=== PATIENT | male | born 1990 | race Caucasian/White ===

== ENCOUNTER 2017-05-04 04:30 | Inpatient (IN) | payer OTHER ==
[~2017-05-04] VITALS: Ht 182.9 cm; Wt 103.1 kg
[2017-05-04 04:50] VITALS: BP 132/71; PULSE 126; RESP 16; TEMP 98.7; O2SAT 96
[2017-05-04] MEDS ORDERED: SODIUM CHLOR 0.9% 1000 ML INJ 1,000 ML IV ONE (05:00)
[2017-05-04] MEDS ORDERED: LORazepam 2 MG/ML VIAL IV ONE (05:00)
[2017-05-04] MEDS ORDERED: SODIUM CHLORIDE 0.9% FLUSH 10 ML FLUSH IV FLUSH PRN (05:00)
[2017-05-04] MEDS ORDERED: CLON1 PO (05:03)
[2017-05-04] MEDS ORDERED: XANA1TAB2 PO (05:03)
[2017-05-04] MEDS ORDERED: ADDE10 PO (05:03)
--- NOTE | 2017-05-04 05:05 | PD ---
HPI Chief Complaint: Psychiatric Symptoms Time Seen by Provider: 04:58 Travel History International Travel<30 days: No Contact w/Intl Traveler<30days: No Traveled to known affect area: No History of Present Illness HPI Patient comes under Patel act by police after threatening to harm himself while holding a knife. Patient had to be tasered by police in order to get him to dropped a knife. chief customer officer reports one probe penetrated his right thigh the other one did not make the skin contact and landed on his right upper anterior thoracic cavity. Patient states getting tasered caused him to step back and dropped a knife but did not cause him to fall to the ground. Patient states he's been tasered before. Patient states he is not sure what happened that everything just went bad tonight. Patient patient's only medical concerns chronic abdominal pain. Patient states is unchanged. Denies anything making it better or worse. Denies any radiation of the pain. PFSH Past Medical History ADHD: Yes Psychiatric: Yes Social History Alcohol Use: No Tobacco Use: Yes Substance Use: No Allergies-Medications (Allergen,Severity, Reaction): Coded Allergies: Haloperidol (Verified Allergy, Severe, Anaphylaxis, 05/04/17) Reported Meds & Prescriptions Reported Meds & Active Scripts Active Reported Adderall (Amphetamine-Dextroamphetamine) 10 Mg Tab 10 Mg PO DIRECTED Take 10 mg in the morning & 5 mg (1/2 tab) at noon. Klonopin (Clonazepam) 1 Mg Tab 1 Mg PO HS Xanax (Alprazolam) 1 Mg Tab 1 Mg PO HS PRN Review of Systems Except as stated in HPI: all other systems reviewed are Neg Physical Exam Narrative GENERAL: Well-developed, overly nourished, in no acute distress, and non-ill appearing. SKIN: Focused skin assessment warm and dry. Patient is a small burn christian noted on right anterior thigh from where he was taser. There is no foreign body noted. No other taser quintana noted in the right upper thoracic cavity police judge reports the other probe landed. HEAD: Atraumatic. Normocephalic. EYES: Pupils equal and round. EOMI. No scleral icterus. No injection or drainage. ENT: No nasal bleeding or discharge. Mucous membranes pink and moist. NECK: Trachea midline. No JVD. Supple. No nuclear rigidity. CARDIOVASCULAR: Regular rate and rhythm. No murmur appreciated. RESPIRATORY: No accessory muscle use. No respiratory distress. Clear to auscultation. Breath sounds equal bilaterally. GASTROINTESTINAL: Abdomen soft, non-tender, nondistended. Hepatic and splenic margins not palpable. No pulsatile mass. MUSCULOSKELETAL: No obvious deformities. No clubbing. No cyanosis. No edema. Full range of motion. NEUROLOGICAL: Awake and alert. No obvious cranial nerve deficits. Motor grossly within normal limits. Normal speech. PSYCHIATRIC: Appropriate mood and affect; insight and judgment normal. Data Data Last Documented VS Vital Signs Date Time Temp Pulse Resp B/P Pulse Ox O2 Delivery O2 Flow Rate FiO2 05/04/17 04:53 125 16 05/04/17 04:50 98.7 132/71 96 Orders Complete Blood Count With Diff (05/04/17 04:56) Comprehensive Metabolic Panel (05/04/17 04:56) Electrocardiogram (05/04/17 04:56) Psych Screen (05/04/17 04:56) Lorazepam Inj (Ativan Inj) (05/04/17 05:00) Drug Screen, Random Urine (05/04/17 04:56) Alcohol (Ethanol) (05/04/17 04:56) Salicylates (Aspirin) (05/04/17 04:56) Tylenol (Acetaminophen) (05/04/17 04:56) Sodium Chlor 0.9% 1000 Ml Inj (Ns 1000 M (05/04/17 05:00) Iv Access Insert/Monitor (05/04/17 04:58) Ecg Monitoring (05/04/17 04:58) Oximetry (05/04/17 04:58) Sodium Chloride 0.9% Flush (Ns Flush) (05/04/17 05:00) Potassium Chloride (Kcl) (05/04/17 07:00) Labs Laboratory Tests Test 05/04/17 05:00 White Blood Count 15.1 TH/MM3 Red Blood Count 5.35 MIL/MM3 Hemoglobin 16.0 GM/DL Hematocrit 47.6 % Mean Corpuscular Volume 89.1 FL Mean Corpuscular Hemoglobin 30.0 PG Mean Corpuscular Hemoglobin 33.6 % Concent Red Cell Distribution Width 14.5 % Platelet Count 305 TH/MM3 Mean Platelet Volume 9.8 FL Neutrophils (%) (Auto) 79.7 % Lymphocytes (%) (Auto) 11.0 % Monocytes (%) (Auto) 8.8 % Eosinophils (%) (Auto) 0.1 % Basophils (%) (Auto) 0.4 % Neutrophils # (Auto) 12.0 TH/MM3 Lymphocytes # (Auto) 1.7 TH/MM3 Monocytes # (Auto) 1.3 TH/MM3 Eosinophils # (Auto) 0.0 TH/MM3 Basophils # (Auto) 0.1 TH/MM3 CBC Comment DIFF FINAL Differential Comment Sodium Level 140 MEQ/L Potassium Level 3.1 MEQ/L Chloride Level 105 MEQ/L Carbon Dioxide Level 21.5 MEQ/L Anion Gap 14 MEQ/L Blood Urea Nitrogen 12 MG/DL Creatinine 0.99 MG/DL Estimat Glomerular Filtration 91 ML/MIN Rate Random Glucose 115 MG/DL Calcium Level 9.9 MG/DL Total Bilirubin 0.4 MG/DL Aspartate Amino Transf 49 U/L (AST/SGOT) Alanine Aminotransferase 56 U/L (ALT/SGPT) Alkaline Phosphatase 69 U/L Total Protein 7.9 GM/DL Albumin 4.4 GM/DL Salicylates Level 3.0 MG/DL Acetaminophen Level LESS THAN 2.0 MCG/ML Ethyl Alcohol Level LESS THAN 3 MG/DL MDM Medical Decision Making Medical Screen Exam Complete: Yes Emergency Medical Condition: Yes Interpretation(s) EKG reviewed by Dr. Guardado shows sinus tachycardia with a ventricular rate of 109. No STEMI. Differential Diagnosis Homicidal, suicidal, acute psychosis, nonspecific mood disorder, electrolyte abnormality, alcohol intoxication, other Narrative Course Patient was seen and examined. Labs were obtained and reviewed with the exception urine drug screen. Patient's potassium was replaced orally. Patient medically cleared for further treatment and evaluation by psych. Final disposition per psych. Diagnosis Primary Impression: Hypokalemia Additional Impression: Medical clearance for psychiatric admission Condition: Stable Bartolo Arteaga May 04, 2017 05:04
[2017-05-04 05:57] LABS: BASOPHIL # 0.1 TH/MM3 (0-0.2); BASOPHIL % 0.4 % (0.0-2.0); EOSINOPHIL % 0.1 % (0.0-4.0); HEMATOCRIT 47.6 % (39.0-51.0); HEMO FLAGS DIFF FINAL; LYMPHOCYTE # 1.7 TH/MM3 (1.0-4.8); MEAN CELL VOLUME 89.1 FL (80.0-100.0); MEAN CORPUSCULAR HGB CONC 33.6 % (32.0-36.0); MONO % 8.8 % (0.0-8.0); NEUT % 79.7 % (16.0-70.0); PLATELET COUNT 305 TH/MM3 (150-450); RED BLOOD COUNT 5.35 MIL/MM3 (4.50-5.90); RED CELL DISTRIBUTION WIDTH 14.5 % (11.6-17.2); WHITE BLOOD COUNT 15.1 TH/MM3 (4.0-11.0)
[2017-05-04 06:22] LABS: ANION GAP 14 MEQ/L (5-15); AST (GOT) 49 U/L (15-37); BICARBONATE 21.5 MEQ/L (21.0-32.0); BLOOD UREA NITROGEN 12 MG/DL (7-18); CHLORIDE 105 MEQ/L (98-107); GLOMERULAR FILTRATION RATE 91 ML/MIN (>89); POTASSIUM 3.1 MEQ/L (3.5-5.1); SODIUM (NA) 140 MEQ/L (136-145)
[2017-05-04 06:26] LABS: ALKALINE PHOSPHATASE 69 U/L (45-117); ALT (GPT) 56 U/L (12-78); TOTAL BILIRUBIN ADULT 0.4 MG/DL (0.2-1.0)
[2017-05-04 06:29] LABS: ACETAMINOPHEN LESS THAN 2.0 MCG/ML (10.0-30.0)
[2017-05-04] MEDS ORDERED: POTASSIUM CHLORIDE 20 MEQ CONTROLLED RELEASE TAB PO ONE (07:00)
[2017-05-04 07:37] VITALS: BP 111/54; PULSE 113; RESP 16; O2SAT 97
[2017-05-04 13:24] VITALS: BP 131/60; PULSE 101; RESP 18; O2SAT 97
--- NOTE | 2017-05-04 13:27 | EKG ---
Date Performed: 05/04/2017 Time Performed: 05:11:59 PTAGE: 27 years EKG: SINUS TACHYCARDIA NONSPECIFIC T-WAVE ABNORMALITY ABNORMAL RHYTHM ECG NO PREVIOUS TRACING DOCTOR: Waldo Verdin Interpretating Date/Time 05/04/2017 13:23:12
[2017-05-04 13:52] LABS: AMPHETAMINE, URINE POS (NEG); BARBITURATES, URINE NEG (NEG); COCAINE, URINE NEG (NEG)
--- NOTE | 2017-05-04 19:41 | PD ---
HPI Chief Complaint: Psychiatric Symptoms Travel History International Travel<30 days: No Contact w/Intl Traveler<30days: No Traveled to known affect area: No PFSH Past Medical History ADHD: Yes Bipolar Disorder: Yes Anxiety: Yes Depression: Yes Medical other: Yes Psychiatric: Yes Schizophrenia: Yes Past Surgical History Abdominal Surgery: Yes (COLON RESECTION) Social History Alcohol Use: No Tobacco Use: Yes Substance Use: No Allergies-Medications (Allergen,Severity, Reaction): Coded Allergies: Haloperidol (Verified Allergy, Severe, Anaphylaxis, 05/04/17) Reported Meds & Prescriptions Reported Meds & Active Scripts Active Reported Adderall (Amphetamine-Dextroamphetamine) 10 Mg Tab 10 Mg PO DIRECTED Take 10 mg in the morning & 5 mg (1/2 tab) at noon. Klonopin (Clonazepam) 1 Mg Tab 1 Mg PO HS Xanax (Alprazolam) 1 Mg Tab 1 Mg PO HS PRN Data Data Last Documented VS Vital Signs Date Time Temp Pulse Resp B/P Pulse Ox O2 Delivery O2 Flow Rate FiO2 05/04/17 13:24 101 18 131/60 97 Room Air 05/04/17 04:50 98.7 Orders Complete Blood Count With Diff (05/04/17 04:56) Comprehensive Metabolic Panel (05/04/17 04:56) Electrocardiogram (05/04/17 04:56) Psych Screen (05/04/17 04:56) Lorazepam Inj (Ativan Inj) (05/04/17 05:00) Drug Screen, Random Urine (05/04/17 04:56) Alcohol (Ethanol) (05/04/17 04:56) Salicylates (Aspirin) (05/04/17 04:56) Tylenol (Acetaminophen) (05/04/17 04:56) Sodium Chlor 0.9% 1000 Ml Inj (Ns 1000 M (05/04/17 05:00) Iv Access Insert/Monitor (05/04/17 04:58) Ecg Monitoring (05/04/17 04:58) Oximetry (05/04/17 04:58) Sodium Chloride 0.9% Flush (Ns Flush) (05/04/17 05:00) Potassium Chloride (Kcl) (05/04/17 07:00) Diet Regular Basic (05/04/17 Breakfast) Diet Regular Basic (05/04/17 Dinner) Lorazepam (Ativan) (05/04/17 19:45) Nicotine 14 Mg Patch.24 Hr (Habitrol 14 (05/04/17 19:45) Labs Laboratory Tests Test 05/04/17 05/04/17 05:00 13:24 White Blood Count 15.1 TH/MM3 Red Blood Count 5.35 MIL/MM3 Hemoglobin 16.0 GM/DL Hematocrit 47.6 % Mean Corpuscular Volume 89.1 FL Mean Corpuscular Hemoglobin 30.0 PG Mean Corpuscular Hemoglobin 33.6 % Concent Red Cell Distribution Width 14.5 % Platelet Count 305 TH/MM3 Mean Platelet Volume 9.8 FL Neutrophils (%) (Auto) 79.7 % Lymphocytes (%) (Auto) 11.0 % Monocytes (%) (Auto) 8.8 % Eosinophils (%) (Auto) 0.1 % Basophils (%) (Auto) 0.4 % Neutrophils # (Auto) 12.0 TH/MM3 Lymphocytes # (Auto) 1.7 TH/MM3 Monocytes # (Auto) 1.3 TH/MM3 Eosinophils # (Auto) 0.0 TH/MM3 Basophils # (Auto) 0.1 TH/MM3 CBC Comment DIFF FINAL Differential Comment Sodium Level 140 MEQ/L Potassium Level 3.1 MEQ/L Chloride Level 105 MEQ/L Carbon Dioxide Level 21.5 MEQ/L Anion Gap 14 MEQ/L Blood Urea Nitrogen 12 MG/DL Creatinine 0.99 MG/DL Estimat Glomerular Filtration 91 ML/MIN Rate Random Glucose 115 MG/DL Calcium Level 9.9 MG/DL Total Bilirubin 0.4 MG/DL Aspartate Amino Transf 49 U/L (AST/SGOT) Alanine Aminotransferase 56 U/L (ALT/SGPT) Alkaline Phosphatase 69 U/L Total Protein 7.9 GM/DL Albumin 4.4 GM/DL Salicylates Level 3.0 MG/DL Acetaminophen Level LESS THAN 2.0 MCG/ML Ethyl Alcohol Level LESS THAN 3 MG/DL Urine Opiates Screen NEG Urine Barbiturates Screen NEG Urine Amphetamines Screen POS Urine Benzodiazepines Screen POS Urine Cocaine Screen NEG Urine Cannabinoids Screen POS MDM Diagnosis Primary Impression: Hypokalemia Additional Impression: Medical clearance for psychiatric admission Condition: Stable Madan Doe MD May 04, 2017 19:41
--- NOTE | 2017-05-04 19:41 | PD ---
Data Data Last Documented VS Vital Signs Date Time Temp Pulse Resp B/P Pulse Ox O2 Delivery O2 Flow Rate FiO2 05/04/17 13:24 101 18 131/60 97 Room Air 05/04/17 04:50 98.7 Orders Complete Blood Count With Diff (05/04/17 04:56) Comprehensive Metabolic Panel (05/04/17 04:56) Electrocardiogram (05/04/17 04:56) Psych Screen (05/04/17 04:56) Lorazepam Inj (Ativan Inj) (05/04/17 05:00) Drug Screen, Random Urine (05/04/17 04:56) Alcohol (Ethanol) (05/04/17 04:56) Salicylates (Aspirin) (05/04/17 04:56) Tylenol (Acetaminophen) (05/04/17 04:56) Sodium Chlor 0.9% 1000 Ml Inj (Ns 1000 M (05/04/17 05:00) Iv Access Insert/Monitor (05/04/17 04:58) Ecg Monitoring (05/04/17 04:58) Oximetry (05/04/17 04:58) Sodium Chloride 0.9% Flush (Ns Flush) (05/04/17 05:00) Potassium Chloride (Kcl) (05/04/17 07:00) Diet Regular Basic (05/04/17 Breakfast) Diet Regular Basic (05/04/17 Dinner) Lorazepam (Ativan) (05/04/17 19:45) Nicotine 14 Mg Patch.24 Hr (Habitrol 14 (05/04/17 19:45) Labs Laboratory Tests Test 05/04/17 05/04/17 05:00 13:24 White Blood Count 15.1 TH/MM3 Red Blood Count 5.35 MIL/MM3 Hemoglobin 16.0 GM/DL Hematocrit 47.6 % Mean Corpuscular Volume 89.1 FL Mean Corpuscular Hemoglobin 30.0 PG Mean Corpuscular Hemoglobin 33.6 % Concent Red Cell Distribution Width 14.5 % Platelet Count 305 TH/MM3 Mean Platelet Volume 9.8 FL Neutrophils (%) (Auto) 79.7 % Lymphocytes (%) (Auto) 11.0 % Monocytes (%) (Auto) 8.8 % Eosinophils (%) (Auto) 0.1 % Basophils (%) (Auto) 0.4 % Neutrophils # (Auto) 12.0 TH/MM3 Lymphocytes # (Auto) 1.7 TH/MM3 Monocytes # (Auto) 1.3 TH/MM3 Eosinophils # (Auto) 0.0 TH/MM3 Basophils # (Auto) 0.1 TH/MM3 CBC Comment DIFF FINAL Differential Comment Sodium Level 140 MEQ/L Potassium Level 3.1 MEQ/L Chloride Level 105 MEQ/L Carbon Dioxide Level 21.5 MEQ/L Anion Gap 14 MEQ/L Blood Urea Nitrogen 12 MG/DL Creatinine 0.99 MG/DL Estimat Glomerular Filtration 91 ML/MIN Rate Random Glucose 115 MG/DL Calcium Level 9.9 MG/DL Total Bilirubin 0.4 MG/DL Aspartate Amino Transf 49 U/L (AST/SGOT) Alanine Aminotransferase 56 U/L (ALT/SGPT) Alkaline Phosphatase 69 U/L Total Protein 7.9 GM/DL Albumin 4.4 GM/DL Salicylates Level 3.0 MG/DL Acetaminophen Level LESS THAN 2.0 MCG/ML Ethyl Alcohol Level LESS THAN 3 MG/DL Urine Opiates Screen NEG Urine Barbiturates Screen NEG Urine Amphetamines Screen POS Urine Benzodiazepines Screen POS Urine Cocaine Screen NEG Urine Cannabinoids Screen POS MDM Supervised Visit with JENNIFFER: No Narrative Course I was approached at 20:00 by nursing to evaluate the patient because he tried to elope. They're requesting sedation medications. Per nursing the patient's tried to get out and follow a staff member out to get a cigarette. The patient has not had any aggressive behavior and has not been agitated. The patient is laying comfortably in bed right now and states he just wanted to get a cigarette. He is calm and cooperative. He has no physical complaints at this time. I offered him an Ativan by mouth and he is agreeable. I see no indication to sedate him further at this time as he is calm and cooperative. Nicotine patch was ordered. We'll continue to monitor, and given instructions to nursing that should he become agitated I will be happy to reevaluate him as the night goes on. Diagnosis Primary Impression: Hypokalemia Additional Impression: Medical clearance for psychiatric admission Condition: Stable Madan Doe MD May 04, 2017 19:41
[2017-05-04] MEDS ORDERED: NICOTINE 14 MG/24 HR PATCH T-DERMAL ONE (19:45)
[2017-05-04] MEDS ORDERED: LORazepam 1 MG TAB PO ONE (19:45)
[2017-05-04 22:00] VITALS: BP 144/89; PULSE 104; RESP 20
[2017-05-04] MEDS ORDERED: diphenhydrAMINE HCL 50 MG/ML VIAL IM ONE (22:45)
[2017-05-04] MEDS ORDERED: OLANZapine IM 10 MG VIAL IM ONE (22:45)
[2017-05-05 02:18] VITALS: BP 111/62; PULSE 73; RESP 16; O2SAT 98
[2017-05-05 05:58] VITALS: BP 143/91; PULSE 98; RESP 20
--- NOTE | 2017-05-05 09:21 | PD ---
History of Present Illness Chief Complaint: Psychiatric Symptoms Time Seen by Provider: 09:05 Travel History International Travel<30 Days: No Contact w/Intl Traveler<30days: No Known affected area: No Legal Status Legal Status: Patel Act Patel Act Signed By: Winnie Walker Patel Act Comment: clenching a knife stating he was going to hurt himself. History of Present Illness: History of Present Illness HPI Patient is a 27 year old male who reports a history of PTSD, schizophrenia, anxiety and a past hx of methamphetamine abuse who is under a Patel act by police after threatening to harm himself while holding a knife. Patient had to be tasered by police in order to get him to dropped the knife. Patient states he is not sure what happened that everything just went bad tonight. Patient is seen in J pod. he is awake, alert and oriented. Telephone call to Augustin Verdin, patient's at [phone]. He states that the family would like the hospital to help them find assistance in finding him services such as housing and that the patient has been punching holes to the billings. Patient seen. Chart reviewed. No previous contact with [facility]. He is alert. Very soft tone of voice and latency of response. Blunted affect. Denies any hallucinations but appears internally preoccupied. Denies suicidal ideation and states " only thoughts". He states that " I had a rough time. I was thinking that something was going to happen to my family. I was worried". He tells me that he has stopped taking the Thorazine because he could not pay for it. Patietn verbalizing paranoia that hospital " are doing things to him". He admits to having had a drink as well as some marijuana. Positive toxicology for cannabinoids. Telephone call to mother . Patient with a history of methamphetamine abuse x many years and has had been off methamphetamine since 2013. He was prescribed the Adderall to help with the sedation associated with the Thorazine and the Xanax. She reports that he was in [facility] for paranoid behavior as well as agitation and violence x 3 months in 2013 and was discharged on Thorazine and [place]. He had pruritus from the [place] and it was stopped. She feels that he needs to have his medication adjusted as he is not functioning and is having episodes of agitation. PFSH Past Medical History ADHD: Yes Bipolar Disorder: Yes Anxiety: Yes Depression: Yes Medical other: Yes Psychiatric: Yes Schizophrenia: Yes Past Surgical History Abdominal Surgery: Yes (COLON RESECTION) Psychiatric History Psychiatric History Hx Psychiatric Treatment: AT [facility]. PATIENT REPORTS HE HAS A HISTORY OF PTSD, BIPOLAR, SCHIZOPHRENIA AND ADHD. History of Inpatient Treatment: Yes (2013 [facility]) Social History Single male. Lives with his parents. Unemployed. Hx Alcohol Use: Yes Hx Tobacco Use: Yes Hx Substance Use: Yes Substance Use Type: Alcohol, Amphetamines-Stimulants, Benzos (Valium,Xanax) Hx of Substance Use Treatment: No Family Psychiatric History None reported Allergies-Medications (Allergen,Severity, Reaction): Coded Allergies: Haloperidol (Verified Allergy, Severe, Anaphylaxis, 05/04/17) Reported Meds & Prescriptions Reported Meds & Active Scripts Active Reported Adderall (Amphetamine-Dextroamphetamine) 10 Mg Tab 10 Mg PO DIRECTED Take 10 mg in the morning & 5 mg (1/2 tab) at noon. Klonopin (Clonazepam) 1 Mg Tab 1 Mg PO HS Xanax (Alprazolam) 1 Mg Tab 1 Mg PO HS PRN Review of Systems Except as stated in HPI: all other systems reviewed are Neg Exam Alert: Yes [place]: Person (ox4) Mood: Other (withdrawn.) Affect: Restricted Speech: Clear (low tone. does not initiate or elaborate on answers) Eye Contact: Indirect Memory Intact: Comment (poor. but not formally tetsed.) Hallucinations: Other (deneis at present) Delusions: Yes (Guarded. ) Delusion Type: Paranoid Suicidal: Ideation (deneis) Homicidal: Ideation (deneis) Insight/Judgement Poor. Impaired. MDM Medical Decision Making Medical Record Reviewed: Yes Assessment/Plan 27 year old male with hx of schizophrenia, PTSD, ADHD who is under a BA after he was found holding a knife unsure if he was going to hurt himself. The patient appears internally preoccupied with paranoid thoughts. His family is concerned that he is not functioning well with current medications and are fearful as he is increasingly more agitated with them. The patietn was placed on [facility] list but they are currently over capacity and unable to accept any patients. He will be admitted to [facility] for further observation, medication adjustment as well as to maintain safety. Orders Diet Regular Basic (05/04/17 Dinner) Lorazepam (Ativan) (05/04/17 19:45) Nicotine 14 Mg Patch.24 Hr (Habitrol 14 (05/04/17 19:45) Olanzapine Inj (Zyprexa Inj) (05/04/17 22:45) Diphenhydramine Inj (Benadryl Inj) (05/04/17 22:45) Diet Regular Basic (05/05/17 Breakfast) Results Vital Signs Date Time Temp Pulse Resp B/P Pulse Ox O2 Delivery O2 Flow Rate FiO2 05/05/17 05:58 98 20 143/91 05/05/17 02:18 73 16 111/62 98 05/04/17 22:00 104 20 144/89 Room Air 05/04/17 13:24 101 18 131/60 97 Room Air Laboratory Tests Test 05/04/17 13:24 Urine Opiates Screen NEG Urine Barbiturates Screen NEG Urine Amphetamines Screen POS Urine Benzodiazepines Screen POS Urine Cocaine Screen NEG Urine Cannabinoids Screen POS Diagnosis Primary Impression: Schizophrenia, paranoid Additional Impression: PTSD (post-traumatic stress disorder) Admitting Information Admitting Physician Requests: Admit Condition: Stable Problem Qualifiers Domitila Harrington May 05, 2017 09:21
[2017-05-05 14:05] VITALS: BP 109/54; PULSE 95; RESP 18
[2017-05-05] MEDS ORDERED: MAGNESIUM HYDROXIDE SUSP 30 ML CUP PO PRN (14:30)
[2017-05-05] MEDS ORDERED: ACETAMINOPHEN 325 MG TAB PO PRN (14:30)
[2017-05-05] MEDS ORDERED: ALUMINUM/MAGNESIUM/SIMETH 30 ML CUP PO PRN (14:30)
[2017-05-05 16:43] VITALS: BP 136/86; PULSE 115; RESP 16; TEMP 97.7; O2SAT 99
[2017-05-05] MEDS ORDERED: FLUMAZENIL 0.5 MG/5 ML VIAL IV PUSH PRN (16:45)
[2017-05-05] MEDS ORDERED: LORazepam 2 MG/ML VIAL IV PUSH PRN ×4 (16:45)
[2017-05-05] MEDS: LORazepam 2 MG TAB PO PRN (22:10)
[2017-05-06 06:23] VITALS: BP 124/69; PULSE 94; RESP 18; TEMP 97.1; O2SAT 97
[2017-05-06] MEDS: NICOTINE 21 MG/24 HR PATCH T-DERMAL SCH (09:00)
[2017-05-06] MEDS: LORazepam 2 MG TAB PO PRN (09:02)
[2017-05-06] MEDS ORDERED: MAGNESIUM HYDROXIDE SUSP 30 ML CUP PO PRN (09:45)
[2017-05-06] MEDS ORDERED: ALUMINUM/MAGNESIUM/SIMETH 30 ML CUP PO PRN (09:45)
[2017-05-06] MEDS ORDERED: ACETAMINOPHEN 325 MG TAB PO PRN (09:45)
--- NOTE | 2017-05-06 09:58 | HHI.HP ---
Provisional Diagnosis Admission Date May 05, 2017 at 14:33 [place] I. Schizophrenia chronic paranoid type of 20.0, polysubstance abuse F 19.10, including amphetamine and benzodiazepine and marijuana Certification of Person's Competence To Provide Express and Informed Consent I have personally examined Josue Zheng , a [facility] on, May 06, 2017 09:46. Express and informed consent means consent voluntarily given in writing, by a competent person, after sufficient explanation and disclosure of the subject matter involved to enable the person to make a knowing and willful decision without any element of force, fraud, deceit, duress, or other form of constraint or coercion. This person is 18 years of age or older, is not now known to be incompetent to consent to treatment with a guardian advocate, and does not have a health care surrogate or proxy currently making medical treatment decisions. I have found this person to be one of the following: [] Competent to provide express and informed consent, as defined above, for voluntary admission to this facility and is competent to provide express and informed consent for treatment. He/she has the consistent capacity to make well reasoned, willful, and knowing decisions concerning his or her medical or mental health treatment. The person fully and consistently understands the purpose of the admission for examination/placement and is fully capable of personally exercising all rights assured under [place] [] Incompetent to provide express and informed consent to voluntary admission, and this is incompetent to provide express and informed consent to treatment. The person must be transferred to involuntary status and a petition for a guardian advocate filed with the Circuit Court. [xx] Refusing to provide express and informed consent to voluntary admission but is competent to provide express and informed consent for treatment. The person must be discharged or transferred to involuntary status. Form shall be completed within 24 hours of a person's arrival at the receiving facility and filed in the clinical record of each person: 1. Admitted on a voluntary basis 2. Permitted to provide express and informed consent to his/her own treatment 3. Allowed to transfer from involuntary to voluntary status 4. Prior to permitting a person to consent to his or her own treatment after having been previously found incompetent to consent to treatment. History of Present Illness Capacity: Lacks Capacity (patient less capacity to sign for admission patient has capacity to sign for medication) HPI Patient is 27 -year-old male comes here under Patel act by the [facility] dated 05/04/17 at 032 6 AM that document reviewed. Essentially stating that subject was suffering an episode clenching a knife in his hand stating he was not sure if he was going to hurt himself. Subject was altering his meds and needed a laser deployment to drop his knife. Patient was seen screened in the ED urine toxicology positive for amphetamines benzodiazepines and marijuana. It appears patient has a history mental health issues going back into [place], he is hospitalized in the past, was also a history per family of the phentermine/methamphetamine abuse. Patient states he sees a clinician in [place] and he supposedly is prescribed amphetamines and to benzodiazepines. Patient seen in his room with nurse Meera, patient laying on his bed with covers of to his children patient quite resistant to responding to us. His responses are markedly delayed whispered tangential circumstantial at times confusing. I did attempt to call his father on the phone no one answered at the home number. In any event at the present time I feel patient does meet criteria for further care and assessment under the Patel act I'll do first opinion request second opinion by feel he does have capacity sign for his medications will offer him Seroquel 50 mg twice a day 100 mg at bedtime. The [facility] patient's family Almita meeting it appears is some concern by the family for the ability to care for this man, and they may want to research various placement options Review of Systems ROS Limitations: Clinical Condition, Intoxication, Altered Mental Status Past Psych History Psychological trauma history Unable to ascertain due to patient's resistance Violence risk - others (6 mos) Patient was waving a knife at police Violence risk - self (6 mos) Patient was living knife at police Substance Abuse History Drugs/Alcohol past 12 months Patient history of methamphetamine abuse as and phentermine benzodiazepine and marijuana in his urine Past Family Social History Coded Allergies: Haloperidol (Verified Allergy, Severe, Anaphylaxis, 05/04/17) Reported Medications Amphetamine-Dextroamphetamine (Adderall)10 Mg Tab10 Mg PO DIRECTED #45 TAB Ref 0 Take 10 mg in the morning & 5 mg (1/2 tab) at noon. 05/04/17 Clonazepam (Klonopin)1 Mg Tab1 Mg PO HS #60 TAB Ref 0 05/04/17 Alprazolam (Xanax)1 Mg Tab1 Mg PO HS PRN (ANXIETY) Ref 0 05/04/17 Current Medications Medications (Trade) Dose Ordered Sig/Vitaliy Route Start Time Stop Time Status Last Admin (NS Flush) 2 ml UNSCH PRN IV FLUSH 05/04/17 05:00 05/04/17 05:11 (Tylenol) 650 mg Q4H PRN PO 05/05/17 14:30 (Milk Of Magnesia Liq) 30 ml DAILY PRN PO 05/05/17 14:30 (Mag-Al Plus Susp Liq) 30 ml Q6H PRN PO 05/05/17 14:30 (Habitrol 21 Mg Patch.24 Hr) 1 patch DAILY T-DERMAL 05/06/17 09:00 Miscellaneous Information 1 HS T-DERMAL 05/06/17 21:00 (Ativan) 1 mg Q4H PRN PO 05/05/17 16:45 (Ativan Inj) 1 mg Q4H PRN IV PUSH 05/05/17 16:45 05/06/17 00:15 (Ativan) 2 mg Q2H PRN PO 05/05/17 16:45 05/06/17 09:02 (Ativan Inj) 2 mg Q2H PRN IV PUSH 05/05/17 16:45 (Ativan Inj) 2 mg Q1H PRN IV PUSH 05/05/17 16:45 (Ativan Inj) 2 mg Q15M PRN IV PUSH 05/05/17 16:45 (Romazicon Inj) 0.2 mg Q1M PRN IV PUSH 05/05/17 16:45 Family History Unable to ascertain due to patient's reluctance to speak with us Social History It appears patient lives with his family Patient's Strengths (min. 2) Patient able access healthcare appears to have supportive family Physical Exam Patient cleared in ED exam reviewed and agreed with, patient laying in bed in no acute distress Supple patient in no respiratory distress, no complaints of abdominal pain patient moves all 4 extremities without difficulty no abnormal motor movements noted Vital Signs Vital Signs Date Time Temp Pulse Resp B/P Pulse Ox O2 Delivery O2 Flow Rate FiO2 05/06/17 06:23 97.1 94 18 124/69 97 05/05/17 14:05 Room Air Mental Status Examination Alert male heavyset [place] guarded with delays in his responses responses are whispered and brief and at times confusing Appearance Somewhat disheveled Speech: Hesitant, Slow, Incoherent (at times), Other (whispered) Orientation: Person, Place Memory: Impaired (describe) Thought Process: Loose Association Thought Content: Other (disorganized) Language Poor Fund of Knowledge Poor Hallucination Type: None (denies) Attention and Concentration: Other (poor) Suicidal Ideation: Yes (patient waiving knife at police) Previous Suicide Attempts: Yes (unknown at this time) Homicidal Ideation: No Previous Homicide Attempts: Yes (unknown at this time) Insight: Poor Affect: Irritable, Sad Mood: Other (markedly restricted) Motor Activity: Normal gait Assessment & Plan Problem List: (1) Schizophrenia, paranoid ICD Code: F20.0 (2) Polysubstance abuse ICD Code: F19.10 Assessment & Plan Estimated LOS 3-5: days if the same patient meets criteria for involuntary psychiatric hospitalization of the Patel act I'll do first opinion request second opinion, I feel his capacity for medications. Will refrain from any benzodiazepines except per the CIBA protocol no opiates no psychostimulants. Will offer him Seroquel. We'll attempt reach patient's family to further information Discharge Planning To be determined Request HC Surrog/Guard Advoc?: No Matthew Finley MD May 06, 2017 09:58
[2017-05-06] MEDS ORDERED: diphenhydrAMINE HCL 50 MG/ML VIAL ONE (12:31)
[2017-05-06] MEDS ORDERED: OLANZapine IM 10 MG VIAL IM ONE ×2 (12:31→13:00)
[2017-05-06] MEDS ORDERED: diphenhydrAMINE HCL 50 MG/ML VIAL IM ONE (13:00)
[2017-05-06] MEDS ORDERED: LORazepam 2 MG/ML VIAL IM ONE (13:00)
[2017-05-06] MEDS ORDERED: QUEtiapine FUMARATE 25 MG TAB PO SCH (16:00)
[2017-05-06] MEDS: hydrOXYzine HCL 50 MG TAB PO PRN (20:28)
[2017-05-06] MEDS: diphenhydrAMINE HCL 50 MG CAP PO PRN (20:28)
[2017-05-06] MEDS ORDERED: REMOVE OLD NICODERM (NICOTINE) PATCH T-DERMAL SCH (21:00)
[2017-05-06] MEDS ORDERED: QUEtiapine FUMARATE 100 MG TAB PO SCH ×2 (21:00)
[2017-05-07] MEDS: diphenhydrAMINE HCL 50 MG CAP PO PRN (01:24)
[2017-05-07] MEDS: LORazepam 2 MG TAB PO PRN (01:24)
[2017-05-07 06:08] VITALS: BP 136/72; PULSE 115; RESP 18; TEMP 96.5; O2SAT 97
[2017-05-07] MEDS: NICOTINE 21 MG/24 HR PATCH T-DERMAL SCH (09:00)
--- NOTE | 2017-05-07 09:36 | PD.PSY.CON ---
Provisional Diagnosis Admission Date May 05, 2017 at 14:33 [place] I. 1. Mood disorder Rule-out drug-induced mood disorder 2. Cannabis, stimulant and benzodiazepine use, rule out substance use disorder [place] II. Deferred [place] V. GAF is 45 presently History of Present Illness Service Psychiatry Consult Requested By Dr. Finley Reason for Consult Second opinion for involuntary psychiatric hospitalization Primary Care Physician No Primary Care Physician HPI From Dr. Finley's H&P: Patient is 27 -year-old male comes here under Patel act by the [facility] dated 05/04/17 at 032 6 AM that document reviewed. Essentially stating that subject was suffering an episode clenching a knife in his hand stating he was not sure if he was going to hurt himself. Subject was altering his meds and needed a laser deployment to drop his knife. Patient was seen screened in the ED urine toxicology positive for amphetamines benzodiazepines and marijuana. It appears patient has a history mental health issues going back into [place], he is hospitalized in the past, was also a history per family of the phentermine/methamphetamine abuse. Patient states he sees a clinician in [place] and he supposedly is prescribed amphetamines and to benzodiazepines. Patient seen in his room with nurse Meera, patient laying on his bed with covers of to his children patient quite resistant to responding to us. His responses are markedly delayed whispered tangential circumstantial at times confusing. I did attempt to call his father on the phone no one answered at the home number. In any event at the present time I feel patient does meet criteria for further care and assessment under the Patel act I'll do first opinion request second opinion by feel he does have capacity sign for his medications will offer him Seroquel 50 mg twice a day 100 mg at bedtime. The [facility] patient's family Almita meeting it appears is some concern by the family for the ability to care for this man, and they may want to research various placement options On my examination today: Patient seen and examined with counselor and nurse. Chart reviewed. Case discussed with nursing counselor. Per nursing staff, the patient tore paper towel null off the wall yesterday and required Zyprexa ETO. On my examination today, the patient is calm and cooperative with examination. He apologizes for the incident with the paper towel null yesterday saying that it was already loose and that he did not intentionally pull it off the wall. He complains of feeling somewhat depressed with poor energy although his sleep is fair. No hopelessness or worthlessness verbalized. He denies any suicidal or homicidal ideation. He denies any audiovisual hallucinations. I can elicit no delusional material at this time. No hypomanic or manic symptoms. Appears a little psychomotor slowed. Says that he feels like he is presently on "too many medications." He says that he feels that he did the best with the Xanax that he was reportedly getting from his outpatient psychiatric provider. He denies abusing substances. Remainder of the psychiatric ROS is negative. Patient is willing to remain on the unit voluntarily for observation and medication adjustment. Past psychiatric history: Patient reports a history of bipolar disorder and PTSD. He follows with a psychiatric provider at a clinic called the [facility]. He reports that his most recent psychiatric admission was over 3 years ago. He denies a history of suicide attempts. Nursing staff has called and obtained medication list from patient's outpatient provider. This includes Thorazine, Klonopin, Xanax and Adderall. Family history: Patient is unsure of his family psychiatric history. Chemical dependency history: The patient denies any abuse of drugs or alcohol. His urine toxicology on presentation here was positive for amphetamines and benzodiazepines, both of which are apparently prescribed as well as for cannabinoids. E-FORCSE report reviewed: I see regular refills of Adderall 10mg (#75 for 25 day supply), Klonopin 1mg (#30 for 30), and Xanax 1mg (#90 for 30) from Dr. Hopson. Social history: The patient reports that he lives with his mother and stepfather. He is single with no children. He is high school educated. No reported access to guns or firearms. Review of Systems Except as stated in HPI: all other systems reviewed are Neg Past Family Social History Coded Allergies: Haloperidol (Verified Allergy, Severe, Anaphylaxis, 05/04/17) Past Medical History Patient reports a history of pancreatitis and IBS. See electronic medical record. Reported Medications Chlorpromazine HCl 25 Mg Dha319 Mg PO BID 05/07/17 Amphetamine-Dextroamphetamine (Adderall)10 Mg Tab10 Mg PO DIRECTED #45 TAB Ref 0 Take 10 mg in the morning & 5 mg (1/2 tab) at noon. 05/04/17 Clonazepam (Klonopin)1 Mg Tab1 Mg PO HS #60 TAB Ref 0 05/04/17 Alprazolam (Xanax)1 Mg Tab1 Mg PO HS PRN (ANXIETY) Ref 0 05/04/17 Current Medications Medications (Trade) Dose Ordered Sig/Vitaliy Route Start Time Stop Time Status Last Admin (NS Flush) 2 ml UNSCH PRN IV FLUSH 05/04/17 05:00 05/04/17 05:11 (Tylenol) 650 mg Q4H PRN PO 05/05/17 14:30 (Milk Of Magnesia Liq) 30 ml DAILY PRN PO 05/05/17 14:30 (Mag-Al Plus Susp Liq) 30 ml Q6H PRN PO 05/05/17 14:30 (Habitrol 21 Mg Patch.24 Hr) 1 patch DAILY T-DERMAL 05/06/17 09:00 Miscellaneous Information 1 HS T-DERMAL 05/06/17 21:00 (Ativan) 1 mg Q4H PRN PO 05/05/17 16:45 (Ativan Inj) 1 mg Q4H PRN IV PUSH 05/05/17 16:45 05/06/17 00:15 (Ativan) 2 mg Q2H PRN PO 05/05/17 16:45 05/07/17 01:24 (Ativan Inj) 2 mg Q2H PRN IV PUSH 05/05/17 16:45 (Ativan Inj) 2 mg Q1H PRN IV PUSH 05/05/17 16:45 (Ativan Inj) 2 mg Q15M PRN IV PUSH 05/05/17 16:45 (Romazicon Inj) 0.2 mg Q1M PRN IV PUSH 05/05/17 16:45 (Benadryl) 50 mg HS PRN PO 05/06/17 09:45 05/07/17 01:24 (Atarax) 50 mg Q6H PRN PO 05/06/17 09:45 05/06/17 20:28 (SEROquel) 50 mg BID@08,16 PO 05/06/17 16:00 05/07/17 06:19 (SEROquel) 100 mg HS PO 05/06/17 21:00 05/06/17 20:28 Family History See above Social History See above Patient's Strengths (min. 2) In a monitored setting. Verbally fluent. Physical Exam Physical examination completed by ED provider. On my examination today, the patient appears to be well-nourished and well-developed and in no acute physical distress. No motor abnormalities noted. No signs of GABAergic withdrawal noted. Laboratories and vital signs reviewed: Vital Signs Vital Signs Date Time Temp Pulse Resp B/P Pulse Ox O2 Delivery O2 Flow Rate FiO2 05/07/17 06:08 96.5 115 18 136/72 97 05/05/17 14:05 Room Air Lab Results Item Value Date Time Sodium Level 138 MEQ/L 05/07/1724 Potassium Level 4.2 MEQ/L 05/07/1724 Chloride Level 103 MEQ/L 05/07/17 0924 Carbon Dioxide Level 30.6 MEQ/L 05/07/17 0924 Blood Urea Nitrogen 10 MG/DL 05/07/17 0924 Creatinine 0.95 MG/DL 05/07/17 0924 Estimat Glomerular Filtration Rate 96 ML/MIN 05/07/17 0924 Random Glucose 84 MG/DL 05/07/17 0924 Aspartate Amino Transf (AST/SGOT) 48 U/L H 05/07/17 0924 Alanine Aminotransferase (ALT/SGPT) 69 U/L 05/07/17 0924 Alkaline Phosphatase 56 U/L 05/07/17 0924 Total Creatine Kinase 350 U/L H 05/07/17 0924 White Blood Count 9.3 TH/MM3 05/07/17 0924 Hemoglobin 16.0 GM/DL 05/07/17 0924 Platelet Count 260 TH/MM3 05/07/17 0924 Urine Amphetamines Screen POS H 05/04/17 1324 Urine Benzodiazepines Screen POS H 05/04/17 1324 Urine Cannabinoids Screen POS H 05/04/17 1324 Ethyl Alcohol Level LESS THAN 3 MG/DL 05/04/17 0500 EKG QTc 411 ms. Mental Status Examination Patient is in hospital gown. He is fairly well groomed. He is maintaining basic hygiene. He is awake and alert and oriented to person and hospital at least. No evidence of delirium. No motor abnormalities noted. Speech is somewhat soft in volume but otherwise within normal limits for rate and tone. Mood is somewhat depressed. Affect blunted. Thought process generally linear. No loosening of associations. No evident delusional material. Denies audiovisual hallucinations. Denies suicidal or homicidal ideation. Insight and judgment are presently unclear. Assessment & Plan Problem List: (1) Mood disorder ICD Code: F39 (2) Substance use, rule-out use disorder Assessment & Plan Patient is willing to remain voluntarily on the unit for observation and stabilization, and I spinner hand that he is capacitated to make this decision. Patient to be allowed to sign in voluntarily. I will be assuming primary care of this patient. I will replace his current Seroquel with prior to admission Thorazine 100mg BID. I will hold his scheduled Adderall and benzodiazepines as I am concerned these may have contributed to his prior to admission psychiatric decompensation, possibly in conjunction with cannabis. Continue CIWA with Ativan. Add seizure/fall prec. Trend CK and GFR/LFTs. Check a lipase given patient's reported history of pancreatitis. Continue to monitor on high acuity unit. Continue other medications and care as ordered. Discharge Planning Pending outcome of observation Request HC Surrog/Guard Advoc?: No Waldo Meza MD May 07, 2017 09:36
[2017-05-07 10:03] LABS: AUTOMATED NEUTROPHIL # 7.2 TH/MM3 (1.8-7.7); BASOPHIL # 0.1 TH/MM3 (0-0.2); BASOPHIL % 0.7 % (0.0-2.0); EOSINOPHIL # 0.1 TH/MM3 (0-0.4); EOSINOPHIL % 0.6 % (0.0-4.0); HEMATOCRIT 46.9 % (39.0-51.0); HEMO FLAGS DIFF FINAL; LYMPH % 13.3 % (9.0-44.0); LYMPHOCYTE # 1.2 TH/MM3 (1.0-4.8); MEAN CELL VOLUME 88.8 FL (80.0-100.0); MEAN CORPUSCULAR HEMOGLOBIN 30.4 PG (27.0-34.0); MEAN CORPUSCULAR HGB CONC 34.2 % (32.0-36.0); MONO % 8.3 % (0.0-8.0); NEUT % 77.1 % (16.0-70.0); PLATELET COUNT 260 TH/MM3 (150-450); RED BLOOD COUNT 5.28 MIL/MM3 (4.50-5.90); RED CELL DISTRIBUTION WIDTH 14.2 % (11.6-17.2); WHITE BLOOD COUNT 9.3 TH/MM3 (4.0-11.0)
[2017-05-07 10:32] LABS: ALKALINE PHOSPHATASE 56 U/L (45-117); ALT (GPT) 69 U/L (12-78); ANION GAP 4 MEQ/L (5-15); AST (GOT) 48 U/L (15-37); BICARBONATE 30.6 MEQ/L (21.0-32.0); BLOOD UREA NITROGEN 10 MG/DL (7-18); CHLORIDE 103 MEQ/L (98-107); CREATINE KINASE 350 U/L (39-308); GLOMERULAR FILTRATION RATE 96 ML/MIN (>89); HDL CHOLESTEROL 34.4 MG/DL (40.0-60.0); LDL CHOLESTEROL 128 MG/DL (0-99); POTASSIUM 4.2 MEQ/L (3.5-5.1); SODIUM (NA) 138 MEQ/L (136-145); TOTAL BILIRUBIN ADULT 0.5 MG/DL (0.2-1.0)
[2017-05-07 11:23] LABS: CKMB 3.3 NG/ML (0.5-3.6)
[2017-05-07] MEDS: hydrOXYzine HCL 50 MG TAB PO PRN (12:14)
[2017-05-07] MEDS ORDERED: CHLO25TA5 PO (12:38)
[2017-05-07 16:49] LABS: HEMOGLOBIN A1a 1.4 %; HEMOGLOBIN A1b 1.9 %; HEMOGLOBIN Ao 86.1 %; HEMOGLOBIN LA1C 1.7 %; HEMOGLOBIN P3 3.3 %
[2017-05-07 18:11] VITALS: BP 135/62; PULSE 101; RESP 16; TEMP 98.2; O2SAT 98
[2017-05-08 05:58] VITALS: BP 160/76; PULSE 108; RESP 18; TEMP 98.7; O2SAT 97
[2017-05-08] MEDS: hydrOXYzine HCL 50 MG TAB PO PRN (12:07)
--- NOTE | 2017-05-08 16:23 | HHI.PYPN ---
Subjective Remarks Patient seen and examined with staff. Chart reviewed. Case discussed in treatment team with nurse, counselor and occupational therapist. Nurse reports that the patient was asking for stimulants. Counselor reports that the patient has had 5 separate episodes for the treatment of stimulant misuse. Counselor has reached out to family who expressed concerns that the patient has some ongoing psychiatric symptomatology. On my examination today, the patient does not display a lot of overt psychotic symptoms. He denies any SI, HI or AVH. I can elicit no frankly delusional material. He does admit that he was nonadherent with antipsychotic medications for the 6-8 weeks prior to admission. Mood is presently described as "okay." Insight into substance use issues is poor. Patient says in particular that "there is no way in [place] you' re going to get me off cannabis." No side effects from medications besides some mild tiredness. No physical complaints. Review of Systems Except as stated in HPI: all other systems reviewed are Neg Objective Alert: Yes [place]: Person (O x 3) Mood: Calm Affect: Blunted Memory Intact: Comment (Fair) Hallucinations: Other (Denies AVH) Delusions: No Delusion Type: Other (No delusions) Suicidal: Ideation (Denies SI) Homicidal: Ideation (Denies HI) Insight/Judgment Poor Remarks No motor abnormalities noted. No signs of withdrawal noted. Thought process linear. Grooming and hygiene fair. Speech within normal limits. Labs Labs reviewed. Lipase wnl. It appears patient refused labs this am. Vitals/IOs Vital Signs Date Time Temp Pulse Resp B/P Pulse Ox O2 Delivery O2 Flow Rate FiO2 05/08/17 05:58 98.7 108 18 160/76 97 05/05/17 14:05 Room Air Assessment & Plan Problem List: (1) Mood disorder ICD Code: F39 (2) Substance use, rule-out use disorder Assessment & Plan Continue to suspect significant contribution from substance use/misuse to his initial presentation. Titrate Thorazine to 150mg BID. Continue CIWA, although patient has not required Ativan by CIWA in >24 hours. Continue to monitor on the inpatient unit. Continue other medications and care as ordered. Justification for Cont. Inpt. Medication changes in process Discharge Planning Anticipate discharge within the next day or 2 Request HC Surrog/Guard Advoc?: No Waldo Meza MD May 08, 2017 16:23
[2017-05-08 17:28] VITALS: BP 134/76; PULSE 103; RESP 18; TEMP 98.2; O2SAT 98
[2017-05-08] MEDS ORDERED: PILL SPLITTER OTHER PRN (18:00)
[2017-05-08] MEDS: LORazepam 1 MG TAB PO PRN (21:15)
[2017-05-09 06:11] VITALS: BP 119/56; PULSE 89; RESP 18; TEMP 96.3; O2SAT 98
--- NOTE | 2017-05-09 09:36 | HHI.PYPN ---
Subjective Remarks Patient seen and examined with counselor and nurse. Chart reviewed. Case discussed with nurse and counselor. Nurse reports that family was allegedly concerned about the Thorazine because it was previously too expensive. I have discussed this with the patient today, and he is unsure whether the expense of the Thorazine is a problem. He does feel like he is doing fairly well with his current medications and denies any suicidal ideation, homicidal ideation or audiovisual hallucinations. He does not feel like he is in a TV show. Denies side effects from medications. No physical complaints besides RLE dystonia. Review of Systems ROS Limitations: Poor Historian Except as stated in HPI: all other systems reviewed are Neg Objective Alert: Yes [place]: Person (once again O x 3) Mood: Calm Affect: Blunted Memory Intact: Comment (Fair) Hallucinations: Other (denies AVH) Delusions: No Delusion Type: Other (No delusions elicited) Suicidal: Ideation (Denies SI) Homicidal: Ideation (Denies HI) Insight/Judgment Poor Remarks No motor abnormalities noted. TP linear. Grooming and hygiene fair. Labs Labs reviewed. No new labs. Vitals/IOs Vital Signs Date Time Temp Pulse Resp B/P Pulse Ox O2 Delivery O2 Flow Rate FiO2 05/09/17 06:11 96.3 89 18 119/56 98 05/05/17 14:05 Room Air Assessment & Plan Problem List: (1) Mood disorder ICD Code: F39 (2) Substance use, rule-out use disorder Assessment & Plan Discussed with patient risks and benefits of alternative therapies to Thorazine. He ultimately decides to stick with the Thorazine. He appears to be doing well from a psych standpoint. Continue Thorazine as ordered. Continue other medications and care as ordered. Justification for Cont. Inpt. Risk for decompensation. Discharge Planning Anticipate discharge home within the next day or 2. Request HC Surrog/Guard Advoc?: No Waldo Meza MD May 09, 2017 09:36
[2017-05-09] MEDS: hydrOXYzine HCL 50 MG TAB PO PRN ×2 (14:41→22:38)
[2017-05-09 15:07] LABS: BICARBONATE 26.8 MEQ/L (21.0-32.0); POTASSIUM 4.2 MEQ/L (3.5-5.1)
[2017-05-09 18:04] VITALS: BP 124/76; PULSE 78; RESP 18; TEMP 98.4; O2SAT 99
[2017-05-09] MEDS: LORazepam 1 MG TAB PO PRN (21:34)
[2017-05-10 06:09] VITALS: BP 114/73; PULSE 106; RESP 16; TEMP 97.4; O2SAT 97
[2017-05-10] MEDS ORDERED: chlorproMAZINE HCL 25 MG TAB PO SCH (09:15)
[2017-05-10] MEDS ORDERED: CHLO25TA5 PO (10:02)
--- NOTE | 2017-05-10 10:02 | HHI.DS ---
Psychiatry Discharge Summary Inpatient Psychiatric care?: Yes Advance Directive: No Mental Health AdvanceDirective: No Health Care Proxy: No Admission Admission Date May 05, 2017 at 14:33 Admission Diagnosis: (1) Schizophrenia, paranoid ICD Code: F20.0 (2) Polysubstance abuse ICD Code: F19.10 Brief History Patient is 27 -year-old male comes here under Patel act by the [facility] dated 05/04/17 at 032 6 AM that document reviewed. Essentially stating that subject was suffering an episode clenching a knife in his hand stating he was not sure if he was going to hurt himself. Subject was altering his meds and needed a laser deployment to drop his knife. Patient was seen screened in the ED urine toxicology positive for amphetamines benzodiazepines and marijuana. 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 Patient states he sees a clinician in [place] and he supposedly is prescribed amphetamines and to benzodiazepines. Patient seen in his room with nurse Meera, patient laying on his bed with covers of to his children patient quite resistant to responding to us. His responses are markedly delayed whispered tangential circumstantial at times confusing. I did attempt to call his father on the phone no one answered at the home number. In any event at the present time I feel patient does meet criteria for further care and assessment under the Patel act I'll do first opinion request second opinion by feel he does have capacity sign for his medications will offer him Seroquel 50 mg twice a day 100 mg at bedtime. The temperatures patient's family Almita meeting it appears is some concern by the family for the ability to care for this man, and they may want to research various placement options Tobacco Use In Past 30 Days: 5 or More Cigarettes/Day Alcohol Use: Never Hospital Course Patient was admitted to a locked, inpatient psychiatric unit. Appropriate precautions were in place throughout patient's hospital stay. Patient was seen and examined daily on the unit by psychiatry and also visited by counselor. Psychotropic medications were adjusted. Patient tolerated medication changes well without significant side effects. Patient had improvement in his presenting psychiatric symptomatology. There was no evidence of any suicidality or homicidality on the inpatient unit. Patient's behavior improved with the benefit of psychopharmacologic treatment. Counselor has reached out to patient's family on the day of discharge, and he tells me that family has no concerns about the patient returning home and reportedly feel that the patient is much improved. On the day of discharge: Patient seen and examined with nurse. Chart reviewed. Case discussed with nursing staff reports that the patient is much clearer with respect his thought process and has been medication compliant. On my examination today, the patient requests discharge from the inpatient psychiatric unit. His thoughts are linear and logical. He denies any suicidal or homicidal ideation, intent or plan on direct questioning and contracts for safety. He denies any audiovisual hallucinations. I can elicit no delusional material. No depressive or hypomanic/manic symptoms. He denies side effects from medications. Weighing the acute, chronic, and protective factors and based on the available evidence, I casino assistant manager to a reasonable degree of medical certainty that the patient is at low imminent risk of harm to self or others from a mental illness as defined under the Patel acted his level of function is adequate for outpatient care. The patient does not meet criteria for involuntary psychiatric hospitalization at this time and is requesting discharge from the inpatient psychiatric unit today. I will therefore discharge him home with psychiatric follow-up as arranged by counselor. Patient is also to follow-up with primary care. I have counseled the patient to abstain from substances of abuse. I have also strongly recommended that the patient not utilize stimulant medications, even if they are prescribed, as I suspect that use of these substances precipitated or perhaps perpetuated the psychosis with which he was initially admitted. I have counseled the patient regarding warning signs for need to return to the psychiatric emergency room as part of a general safety plan. Results Blood Pressure 114 / 73 Vital Signs Date Time Temp Pulse Resp B/P Pulse Ox O2 Delivery O2 Flow Rate FiO2 05/10/17 06:09 97.4 106 16 114/73 97 Laboratory Tests Test 05/09/17 14:36 Random Glucose 111 MG/DL (74-106) Laboratory Results Test 05/07/17 09:24 Hemoglobin A1c 5.2 % (4.3-6.0) Triglycerides Level 194 MG/DL (42-150) Cholesterol Level 201 MG/DL (120-200) LDL Cholesterol 128 MG/DL (0-99) HDL Cholesterol 34.4 MG/DL (40.0-60.0) Summary of Procedures None done Imaging None done Pending results at discharge: No Medications # of Antipsychotic meds at D/C: 1 Approp Antipsych med options 1 - Minimum of three failed multiple trials of monotherapy. 2 - Documented plan to taper to monotherapy due to previous use of multiple meds OR cross-taper in progress at D/C. 3 - Documentation of augmentation of Clozapine. 4 - Justification other than those listed in allowable values 1-3, document here : Discharge Discharge Date: May 10, 2017 Discharge Diagnosis: (1) Schizophrenia, paranoid Diagnosis: Principal (stabilized. Suspect significant component of drug- induced psychotic disorder.) ICD Code: F20.0 (2) Polysubstance abuse ICD Code: F19.10 GAF is 55. Mental Status Exam at Disch Patient is casually attired. He is well groomed. He is awake and alert and oriented 3. No delirium. Mild resting tremor, but patient says this is chronic. No other motor abnormalities noted. Speech within normal limits for rate, tone and volume. Language and fund of knowledge average. Focus and concentration intact. Memory grossly intact on clinical exam. Mood fair, affect somewhat blunted. Thought process linear. No loosening of associations. No delusional material elicited. Denies audiovisual hallucinations. Denies suicidal or homicidal ideation, intent or plan. Insight and judgment are fair. Pt Condition on Discharge: Stable Discharge Disposition: Discharge Home Discharge Instructions Diet Instructions: As Tolerated, No Restrictions Activities you can perform: Weight Bearing as Melvin Scheduled Appointment: as per counselor's notes New Medications: Chlorpromazine HCl (Chlorpromazine HCl) 25 Mg Tab 125 MG PO BID Mental Health Days 15 Ref 1 TAB Discontinued Medications: Alprazolam (Xanax) 1 Mg Tab 1 MG PO HS PRN ANXIETY Ref 0 TAB Amphetamine-Dextroamphetamine (Adderall) 10 Mg Tab 10 MG PO DIRECTED Take 10 mg in the morning & 5 mg (1/2 tab) at noon. Hyperactivity Control #45 Ref 0 TAB Chlorpromazine HCl (Chlorpromazine HCl) 25 Mg Tab 100 MG PO BID Clonazepam (Klonopin) 1 Mg Tab 1 MG PO HS #60 Ref 0 TAB Discharge Time <= 30 minutes Discharge/Advance Care Plan Health Problems: (1) Mood disorder (2) Substance use, rule-out use disorder Goals to promote your health * To prevent worsening of your condition and complications * To maintain your health at the optimal level Directions to meet your goals Take your medications as prescribed Follow your dietary instruction Follow activity as directed Keep your appointments as scheduled Take your immunizations and boosters as scheduled If your symptoms worsen call your PCP, if no PCP go to Urgent Care Center or Emergency Room For 21/05 questions related to your inpatient stay or results of tests pending at discharge, please contact Dr. Waldo Meza at Smoking is Dangerous to Your Health. Avoid second hand smoking Waldo Meza MD May 10, 2017 10:02
== END 2017-05-10 15:30 | disposition home or self-care (01) | DRG 885 ==
LOC: NEPD 04:30 → NEDA 05-05 14:33 → H270 05-05 16:10
PROVIDERS: ADMIT Psychiatry & Neurology Psychiatry; ATTEND Psychiatry & Neurology Psychiatry
DX: F20.0 Paranoid schizophrenia (principal); F15.10 Other stimulant abuse, uncomplicated; E87.6 Hypokalemia; F19.10 Other psychoactive substance abuse, uncomplicated; F90.9 Attention-deficit hyperactivity disorder, unspecified type; Z72.0 Tobacco use; F31.9 Bipolar disorder, unspecified; F43.10 Post-traumatic stress disorder, unspecified; G89.29 Other chronic pain
CPT/HCPCS: 80048; 80053; 80061; 80307; 82550; 82552; 83036; 83690; 85025; 93005; 96361; 96372; 96374; J1200; J2060; J7030; Q0163

== ENCOUNTER 2017-12-17 19:55 | Emergency (ER) | payer SELFPAY ==
[~2017-12-17 19:55] MED LIST: CHLO25TA5 PO
[2017-12-17 19:58] VITALS: BP 147/92; TEMP 97.8; O2SAT 98
[2017-12-17] MEDS ORDERED: MELA10TA4 PO (20:37)
[2017-12-17] MEDS ORDERED: CHLO200T5 PO ×2 (20:37)
[2017-12-17] MEDS ORDERED: LITH300T PO (20:37)
[2017-12-17] MEDS ORDERED: SERO50TA PO (20:37)
[2017-12-17 21:09] LABS: AUTOMATED NEUTROPHIL # 8.1 TH/MM3 (1.8-7.7); BASOPHIL % 0.2 % (0.0-2.0); HEMATOCRIT 44.8 % (39.0-51.0); HEMOGLOBIN 15.5 GM/DL (13.0-17.0); LYMPH % 10.8 % (9.0-44.0); LYMPHOCYTE # 1.1 TH/MM3 (1.0-4.8); MEAN CELL VOLUME 83.7 FL (80.0-100.0); MEAN CORPUSCULAR HEMOGLOBIN 28.9 PG (27.0-34.0); MEAN CORPUSCULAR HGB CONC 34.6 % (32.0-36.0); MEAN PLATELET VOLUME 8.4 FL (7.0-11.0); MONO % 6.3 % (0.0-8.0); MONOCYTE # 0.6 TH/MM3 (0-0.9); NEUT % 82.7 % (16.0-70.0); PLATELET COUNT 279 TH/MM3 (150-450); RED BLOOD COUNT 5.35 MIL/MM3 (4.50-5.90); RED CELL DISTRIBUTION WIDTH 17.5 % (11.6-17.2); WHITE BLOOD COUNT 9.8 TH/MM3 (4.0-11.0)
[2017-12-17 21:50] LABS: BICARBONATE 23.2 MEQ/L (21.0-32.0); BLOOD UREA NITROGEN 14 MG/DL (7-18); CALCIUM 9.2 MG/DL (8.5-10.1); CHLORIDE 103 MEQ/L (98-107); CREATININE 1.07 MG/DL (0.60-1.30); GLOMERULAR FILTRATION RATE 84 ML/MIN (>89); GLUCOSE,RANDOM 140 MG/DL (74-106); SODIUM (NA) 137 MEQ/L (136-145)
--- NOTE | 2017-12-17 22:17 | PD ---
HPI Chief Complaint: Anxiety Time Seen by Provider: 22:03 Travel History International Travel<30 days: No Contact w/Intl Traveler<30days: No Traveled to known affect area: No History of Present Illness HPI 27-year-old male presents emergency department accompanied by family members for evaluation of anxiety. Patient has a history of bipolar, anxiety, schizophrenia. He was just seen at [facility] a few days ago and had Seroquel added to his medications. They are hoping to take him off his Thorazine. The patient states that he is feeling very anxious. He is requesting to be Patel acted and admitted. Patient denies any active suicidal or homicidal ideation. Patient states that he suffers from chronic pancreatitis and IBS. Patient states that he is overwhelmed with anxiety. He has had some nausea with some vomiting. His chronic abdominal pain. Denies any fever chills. No cough, congestion, chest pain, shortness of breath, dysuria, frequency abdominal pain or rashes. PFSH Past Medical History ADHD: Yes Bipolar Disorder: Yes Anxiety: Yes Depression: Yes Psychiatric: Yes Schizophrenia: Yes Tetanus Vaccination: Unknown Influenza Vaccination: No Past Surgical History Abdominal Surgery: Yes (COLON RESECTION) Social History Alcohol Use: Yes (occasionally) Tobacco Use: Yes Substance Use: Yes (marijuana) Allergies-Medications (Allergen,Severity, Reaction): Coded Allergies: haloperidol (Unverified Allergy, Severe, Anaphylaxis, 12/17/17) Reported Meds & Prescriptions Reported Meds & Active Scripts Active Reported Melatonin 10 Mg Tablet 10 Mg PO HS Chlorpromazine (Chlorpromazine HCl) 200 Mg Tab 400 Mg PO HS PRN Chlorpromazine (Chlorpromazine HCl) 200 Mg Tab 200 Mg PO DAILY PRN Joyce Carbonate ER (Joyce Carbonate) 300 Mg Tab 300 Mg PO BID Seroquel (Quetiapine Fumarate) 50 Mg Tab 50 Mg PO TID Review of Systems Except as stated in HPI: all other systems reviewed are Neg Psychiatric: Positive: Anxiety, Depression, Mood Disorder, No: Suicidal Ideations, Disorder of Thought, Substance Abuse, Homicidal Ideation Physical Exam Narrative GENERAL: Well-nourished, well-developed patient. Patient is resting comfortable in examination room. He is accompanied by family members. SKIN: Warm and dry. HEAD: Normocephalic and atraumatic. EYES: No scleral icterus. No injection or drainage. ENT: No nasal drainage noted. Mucous membranes pink. Airway patent. NECK: Supple, trachea midline. Moves head freely without obvious discomfort. CARDIOVASCULAR: Regular rate and rhythm without murmurs, gallops, or rubs. RESPIRATORY: Breath sounds equal bilaterally. No accessory muscle use. GASTROINTESTINAL: Abdomen soft, non-tender, nondistended. EXTREMITIES: No cyanosis or edema. BACK: Nontender without obvious deformity. No CVA tenderness. NEURO: Patient is alert and oriented. no sensorimotor deficits. Nonfocal. Normal speech. PSYCH: No delusions. No auditory or visual hallucinations. Data Data Last Documented VS Vital Signs Date Time Temp Pulse Resp B/P (MAP) Pulse Ox O2 Delivery O2 Flow Rate FiO2 12/17/17 19:58 97.8 125 16 147/92 (110) 98 Orders Orders Complete Blood Count With Diff (12/17/17 20:03) Thyroid Stimulating Hormone (12/17/17 20:03) Basic Metabolic Panel (Bmp) (12/17/17 20:03) Psych Screen (12/17/17 20:03) Drug Screen, Random Urine (12/17/17 20:03) Alcohol (Ethanol) (12/17/17 20:03) Joyce (Li) (12/17/17 22:12) Diphenhydramine (Benadryl) (12/18/17 00:45) Ed Discharge Order (12/18/17 00:34) Labs Laboratory Tests Test 12/17/17 20:55 12/17/17 21:30 12/17/17 23:00 White Blood Count 9.8 TH/MM3 Red Blood Count 5.35 MIL/MM3 Hemoglobin 15.5 GM/DL Hematocrit 44.8 % Mean Corpuscular Volume 83.7 FL Mean Corpuscular Hemoglobin 28.9 PG Mean Corpuscular Hemoglobin Concent 34.6 % Red Cell Distribution Width 17.5 % Platelet Count 279 TH/MM3 Mean Platelet Volume 8.4 FL Neutrophils (%) (Auto) 82.7 % Lymphocytes (%) (Auto) 10.8 % Monocytes (%) (Auto) 6.3 % Eosinophils (%) (Auto) 0.0 % Basophils (%) (Auto) 0.2 % Neutrophils # (Auto) 8.1 TH/MM3 Lymphocytes # (Auto) 1.1 TH/MM3 Monocytes # (Auto) 0.6 TH/MM3 Eosinophils # (Auto) 0.0 TH/MM3 Basophils # (Auto) 0.0 TH/MM3 CBC Comment DIFF FINAL Differential Comment Blood Urea Nitrogen 14 MG/DL Creatinine 1.07 MG/DL Random Glucose 140 MG/DL Calcium Level 9.2 MG/DL Sodium Level 137 MEQ/L Potassium Level 3.8 MEQ/L Chloride Level 103 MEQ/L Carbon Dioxide Level 23.2 MEQ/L Anion Gap 11 MEQ/L Estimat Glomerular Filtration Rate 84 ML/MIN Thyroid Stimulating Hormone 3rd Gen 1.790 uIU/ML Ethyl Alcohol Level LESS THAN 3 MG/DL Urine Opiates Screen NEG Urine Barbiturates Screen NEG Urine Amphetamines Screen NEG Urine Benzodiazepines Screen NEG Urine Cocaine Screen NEG Urine Cannabinoids Screen NEG Joyce Level 0.3 MEQ/L [facility] Medical Decision Making Medical Screen Exam Complete: Yes Emergency Medical Condition: Yes Medical Record Reviewed: Yes Interpretation(s) Laboratory Tests Test 12/17/17 20:55 12/17/17 21:30 White Blood Count 9.8 TH/MM3 Red Blood Count 5.35 MIL/MM3 Hemoglobin 15.5 GM/DL Hematocrit 44.8 % Mean Corpuscular Volume 83.7 FL Mean Corpuscular Hemoglobin 28.9 PG Mean Corpuscular Hemoglobin Concent 34.6 % Red Cell Distribution Width 17.5 % Platelet Count 279 TH/MM3 Mean Platelet Volume 8.4 FL Neutrophils (%) (Auto) 82.7 % Lymphocytes (%) (Auto) 10.8 % Monocytes (%) (Auto) 6.3 % Eosinophils (%) (Auto) 0.0 % Basophils (%) (Auto) 0.2 % Neutrophils # (Auto) 8.1 TH/MM3 Lymphocytes # (Auto) 1.1 TH/MM3 Monocytes # (Auto) 0.6 TH/MM3 Eosinophils # (Auto) 0.0 TH/MM3 Basophils # (Auto) 0.0 TH/MM3 CBC Comment DIFF FINAL Differential Comment Blood Urea Nitrogen 14 MG/DL Creatinine 1.07 MG/DL Random Glucose 140 MG/DL Calcium Level 9.2 MG/DL Sodium Level 137 MEQ/L Potassium Level 3.8 MEQ/L Chloride Level 103 MEQ/L Carbon Dioxide Level 23.2 MEQ/L Anion Gap 11 MEQ/L Estimat Glomerular Filtration Rate 84 ML/MIN Thyroid Stimulating Hormone 3rd Gen 1.790 uIU/ML Ethyl Alcohol Level LESS THAN 3 MG/DL Urine Opiates Screen NEG Urine Barbiturates Screen NEG Urine Amphetamines Screen NEG Urine Benzodiazepines Screen NEG Urine Cocaine Screen NEG Urine Cannabinoids Screen NEG Differential Diagnosis MDM: High Differential diagnoses: Schizophrenia, schizoaffective disorder, bipolar, anxiety, depression, adjustment reaction, mood disorder NOS, ODD, depressive disorder NOS, dementia, dementia with agitation, psychosis NOS, substance induced mood disorder, DMDD, Asperger syndrome, infection,electrolyte abnormality, malingering. Narrative Course Mental health screening discussed with the patient. Psychiatric screen ordered. I have added a lithium level. I reviewed the patient's laboratory testing. The patient medically cleared. The patient has been evaluated by the psych screener. It is felt that he does not require inpatient management. The patient is given 50 mg of Benadryl p.o. now for sleep and anxiety. He is also encouraged to take his evening dose of lithium. I have discussed the history, clinical findings and recommendations with the patient and his family. They agree with treatment plan and follow-up as an outpatient with Reynaldo Szymanski. This is medical clearance for psychiatric admission. Diagnosis Primary Impression: Medical clearance for psychiatric admission Patient Instructions: General Instructions Additional Instructions: Rest. Follow-up with the recommendations of the psych screener. Follow-up with Reynaldo Szymanski. Med/Other Pt SpecificInfo: No Meds Exist/No RX given Disposition: 01 DISCHARGE HOME Condition: Stable David Cardenas Dec 17, 2017 22:17
[2017-12-18] MEDS ORDERED: diphenhydrAMINE HCL 50 MG CAP PO ONE (00:45)
== END 2017-12-18 01:30 | disposition home or self-care (01) ==
LOC: NEPD 19:55
DX: F41.9 Anxiety disorder, unspecified (principal); F20.9 Schizophrenia, unspecified; F31.9 Bipolar disorder, unspecified; F90.9 Attention-deficit hyperactivity disorder, unspecified type; G89.29 Other chronic pain; K58.9 Irritable bowel syndrome, unspecified; K86.1 Other chronic pancreatitis; F17.210 Nicotine dependence, cigarettes, uncomplicated; Z79.899 Other long term (current) drug therapy; Z51.81 Encounter for therapeutic drug level monitoring
CPT/HCPCS: 80048; 80178; 80307; 84443; 85025; 99283; Q0163